=== PATIENT | male | born 1985 | race Two or more races ===

== ENCOUNTER 2019-06-27 19:36 | Inpatient (IN) | payer OTHER ==
[~2019-06-27] VITALS: Ht 172.7 cm; Wt 80.6 kg
[2019-06-27] MEDS ORDERED: ASPIRIN 81 MG TABLET CHEW ONE (19:44)
[2019-06-27] MEDS ORDERED: ASPIRIN 81 MG TABLET CHEW PO ONE (20:00)
--- NOTE | 2019-06-27 20:08 | NUR ---
Pt appears to be having an axiety attack. Reports I woke up and I couldnt breathe. Pt reports that I have never felt this bad.
--- NOTE | 2019-06-27 20:09 | NUR ---
Pt connected to camilo vinson. Pt placed on a non rebreather mask. Pt reports that he had an axiety attack like this before a few years while in grad school.
[2019-06-27 20:16] LABS: MEAN CORPUSCULAR HEMOGLOBIN 29.3 pg (27.5-34.5); MEAN CORPUSCULAR HGB CONC 33.8 g/dL (33.2-36.2); MEAN CORPUSCULAR VOLUME 86.6 fL (81-97); PLATELET COUNT 317 x10^3/uL (130-400); RED BLOOD COUNT 5.76 x10^6/uL (4.38-5.82); RED CELL DISTRIBUTION WIDTH 12.9 % (9.4-14.8)
--- NOTE | 2019-06-27 20:20 | NUR ---
Pt much more calm now. Hands are relaxing. Per pt mask is helping pt.
[2019-06-27 20:28] LABS: ALANINE AMINOTRANSFERASE 39 U/L (12-78); ALBUMIN 4.4 g/dL (3.4-5.0); ANION GAP 11 mmol/L (5-15); CALCIUM 9.3 mg/dL (8.5-10.1); CHLORIDE 108 mmol/L (98-107); CREATININE 1.37 mg/dL (0.7-1.3)
[2019-06-27 20:32] LABS: ALKALINE PHOSPHATASE 86 U/L (45-117); BILIRUBIN,TOTAL 0.9 mg/dL (0.2-1.0); TOTAL PROTEIN 7.3 g/dL (6.4-8.2); TROPONIN I < 0.015 ng/mL (0.000-0.045)
[2019-06-27 20:42] LABS: RAPID INFLUENZA A Negative (Negative); RAPID INFLUENZA B Negative (Negative)
[2019-06-27 20:50] LABS: MD YES
[2019-06-27 20:51] LABS: BAND#(MANUAL) 0.68 x10^3/uL; BANDS%(MANUAL) 3 % (0-7); LYMPH#(MANUAL) 1.58 x10^3/uL (1-3.4); LYMPHS% (MANUAL) 7 % (22-44); MONOS#(MANUAL) 0.68 x10^3/uL (0.3-2.7); MONOS% (MANUAL) 3 % (2-9); SEG#(MANUAL) 19.58 x10^3/uL (1.8-6.8); SEGS% (MANUAL) 87 % (42-75)
[2019-06-27 20:52] LABS: <PLATELET ESTIMATE> ADEQUATE; <PLT MORPHOLOGY> NORMAL PLT MORPH; <RBC MORPHOLOGY> NORMAL
[2019-06-27] MEDS ORDERED: LORazepam 2 MG/ML, 1ML IV STA (20:53)
[2019-06-27] MEDS ORDERED: AZITHROMYCIN 500 MG in SODIUM CHLORIDE 0.9% 250 ML IV ONE (21:00)
[2019-06-27] MEDS ORDERED: CEFTRIAXONE PMX 1GM/50ML 50 ML IV ONE (21:00)
[2019-06-27] MEDS ORDERED: SODIUM CHLORIDE FLUSH 10ML SYR IVF ONE (21:00)
[2019-06-27] MEDS ORDERED: SODIUM CHLORIDE 0.9% 1,000ML IVBOLUS ONE ×2 (21:00→22:00)
[2019-06-27] MEDS ORDERED: POTASSIUM CHLORIDE 20 MEQ TAB.ER.PRT PO ONE (21:00)
[2019-06-27] MEDS ORDERED: CEFTRIAXONE PMX 1GM/50ML 50 ML ONE (21:13)
[2019-06-27] MEDS ORDERED: POTASSIUM CHLORIDE 20 MEQ TAB.ER.PRT ONE (21:31)
[2019-06-27] MEDS ORDERED: LORazepam 2 MG/ML, 1ML ONE (21:49)
--- NOTE | 2019-06-27 21:51 | NUR ---
PT MEDICATED FOR ANXIETY. PT REPORTS FEELING HIS HR RACING, HR NORMAL.
[2019-06-27] MEDS ORDERED: ACETAMINOPHEN 325 MG TABLET ONE (21:57)
[2019-06-27] MEDS ORDERED: IBUPROFEN 800 MG TABLET ONE (21:57)
[2019-06-27] MEDS ORDERED: PIPERACILLIN/TAZO/PMX 3.375GM 50 ML IVPB ONE (22:00)
[2019-06-27] MEDS ORDERED: IBUPROFEN 600 MG TABLET PO ONE (22:00)
[2019-06-27] MEDS ORDERED: ACETAMINOPHEN 325 MG TABLET PO ONE (22:00)
--- NOTE | 2019-06-27 23:23 | NUR ---
MD Sweeney informed that pts temp is going up. Per md unable to further treat. Will continue to monitor. Floor rn aware.
[2019-06-28 00:04] VITALS: BP 97/66
[2019-06-28 00:45] VITALS: BP 97/66
[2019-06-28] MEDS ORDERED: DIPHENHYDRAMINE 25 MG CAPSULE PO PRN (01:30)
[2019-06-28] MEDS ORDERED: LIDODERM 5% PATCH TD PRN (01:30)
[2019-06-28] MEDS ORDERED: hydrALAzine 20 MG/ML, 1ML IVPush PRN (01:30)
[2019-06-28] MEDS ORDERED: ONDANSETRON ODT 4 MG PO PRN (01:30)
[2019-06-28] MEDS ORDERED: ACETAMINOPHEN 325 MG TABLET PO PRN (01:30)
[2019-06-28] MEDS ORDERED: DOCUSATE 100 MG CAPSULE PO PRN (01:30)
[2019-06-28] MEDS: HEPARIN 5,000 UNITS/ML, 1ML SQ SCH ×3 (02:00→17:13)
[2019-06-28] MEDS: PIPERACILLIN/TAZO/PMX 3.375GM 50 ML IV SCH ×3 (06:17→18:38)
[2019-06-28 06:26] VITALS: BP 105/67
[2019-06-28 07:19] VITALS: BP 108/69
[2019-06-28] MEDS: SODIUM CHLORIDE 0.9% 1,000 ML IV SCH ×2 (10:45→20:21)
[2019-06-28 13:38] VITALS: BP 121/81
[2019-06-28 20:26] VITALS: BP 133/74
[2019-06-29] MEDS: PIPERACILLIN/TAZO/PMX 3.375GM 50 ML IV SCH ×2 (00:33→06:01)
[2019-06-29 00:35] VITALS: BP 109/74
[2019-06-29] MEDS: HEPARIN 5,000 UNITS/ML, 1ML SQ SCH ×2 (01:30→09:30)
[2019-06-29 04:59] LABS: BASOPHILS # (AUTO) 0.02 x10^3/uL (0-0.1); BASOPHILS % (AUTO) 0 % (0-1); EOSINOPHILS # (AUTO) 0.18 x10^3/uL (0-0.4); EOSINOPHILS % (AUTO) 1 % (1-7); LYMPHOCYTES # (AUTO) 1.96 x10^3/uL (1-3.4); LYMPHOCYTES % (AUTO) 15 % (22-44); MD NO; MEAN CORPUSCULAR HEMOGLOBIN 29.3 pg (27.5-34.5); MEAN CORPUSCULAR HGB CONC 33.6 g/dL (33.2-36.2); MEAN CORPUSCULAR VOLUME 87.3 fL (81-97); MEAN PLATELET VOLUME 8.4 fL (7.4-10.4); MONOCYTES # (AUTO) 0.95 x10^3/uL (0.2-0.8); MONOCYTES % (AUTO) 7 % (2-9); NEUTROPHILS # (AUTO) 9.85 x10^3/uL (1.8-6.8); NEUTROPHILS % (AUTO) 76 % (42-75); PLATELET COUNT 283 x10^3/uL (130-400); RED BLOOD COUNT 5.38 x10^6/uL (4.38-5.82); RED CELL DISTRIBUTION WIDTH 13.3 % (9.4-14.8)
[2019-06-29 05:07] LABS: ANION GAP 6 mmol/L (5-15); CALCIUM 9.3 mg/dL (8.5-10.1); CHLORIDE 111 mmol/L (98-107)
[2019-06-29 05:09] LABS: CREATININE 1.08 mg/dL (0.7-1.3)
[2019-06-29] MEDS: SODIUM CHLORIDE 0.9% 1,000 ML IV SCH (06:01)
[2019-06-29 07:30] VITALS: BP 97/66
[2019-06-29] MEDS ORDERED: AMOX1TAB64 PO (09:37)
== END 2019-06-29 11:00 | disposition home or self-care (01) | DRG 871 ==
LOC: ED 22:53 → EDIP 23:24 → 4NE 23:44 → DCLOUNGE 06-29 10:55
PROVIDERS: ADMIT Internal Medicine; ATTEND Internal Medicine
DX: A41.9 Sepsis, unspecified organism (principal); J15.9 Unspecified bacterial pneumonia; N17.0 Acute kidney failure with tubular necrosis; R65.20 Severe sepsis without septic shock; E87.6 Hypokalemia
CPT/HCPCS: 36415; 71046; 80048; 80053; 83605; 83735; 84100; 84484; 85025; 85379; 87040; 87400; 93005; 99285; G0378; J0456; J0696; J2543; J2060; J7030; J7050